=== PATIENT | female | born 2000 | race Caucasian/White ===

== ENCOUNTER 2020-10-20 01:21 | Emergency (ER) | payer OTHER ==
[~2020-10-20] VITALS: Ht 160 cm; Wt 81.6 kg
--- NOTE | 2020-10-20 02:02 | NUR ---
PATIENT CAME TO THE ER BED 14 C/O VAGINAL BLISTER AND PAIN SINCE LAST WEEK ON 10/11/20. PATIENT STATES THAT SHE IS SEXUALLY ACTIVE AND WITH ONLY ONE SEX PARTNER. PATIENT ALSO STATES THAT SHE TOOK ONE DOSE OF AMOXICILLIN ON THE AND STOPPED. PATIENT STATES THAT SHE HAD WHITE CLOUDY DISCHARGE LAST WEEK AND CURRENTLY HAS NONE. PATIENT IS ALERT. ORIENTED x4. DENIES SHORTNESS OF BREATH. CONNECTED TO THE MONITOR. CHANGED INTO A GOWN. MOTHER IS AT BEDSIDE.
[2020-10-20] MEDS ORDERED: HYDROCODONE/APAP 5/325MG TABLET PO ONE (02:30)
[2020-10-20] MEDS ORDERED: HYDROCODONE/APAP 5/325MG TABLET ONE (02:31)
--- NOTE | 2020-10-20 02:33 | NUR ---
US TECH AT BED SIDE
[2020-10-20 03:21] LABS: BILIRUBIN,URINE SMALL (NEGATIVE); COLOR,URINE YELLOW (YELLOW); LEUKOCYTE ESTERASE ,URINE Negative (NEGATIVE); NITRITE, URINE Negative (NEGATIVE); PROTEIN,URINE Negative (NEGATIVE); UGLUCOSE Negative (NEGATIVE); UROBILINOGEN,URINE 0.2 EU/dL (0.2)
[2020-10-20] MEDS ORDERED: LIDOCAINE /MPF 1% VIAL 5 ML VIAL ONE (03:29)
[2020-10-20] MEDS ORDERED: ONDANSETRON 4 MG TAB.RAPDIS ONE (03:29)
[2020-10-20] MEDS ORDERED: CEFTRIAXONE 500 MG VIAL ONE (03:29)
[2020-10-20] MEDS ORDERED: AZITHROMYCIN 250 MG TABLET ONE (03:29)
[2020-10-20] MEDS ORDERED: AZITHROMYCIN 250 MG TABLET PO ONE (03:30)
[2020-10-20] MEDS ORDERED: CEFTRIAXONE 1 G VIAL IM ONE (03:30)
[2020-10-20] MEDS ORDERED: ONDANSETRON 4 MG TAB.RAPDIS SL ONE (03:30)
[2020-10-20] MEDS ORDERED: HYDR-4209 PO (03:57)
[2020-10-20] MEDS ORDERED: ONDA4TAB5 PO (03:57)
[2020-10-20] MEDS ORDERED: DOXY100C2 PO (03:58)
--- NOTE | 2020-10-20 04:09 | NUR ---
Patient discharged to home in stable condition. Written and verbal after care instructions given. Patient verbalizes understanding of instruction.pt. ambulatory with a steady gait
[2020-10-20 05:33] VITALS: BP 111/77
== END 2020-10-20 04:09 | disposition home or self-care (01) ==
LOC: ER 01:25
DX: N76.5 Ulceration of vagina (principal); E03.9 Hypothyroidism, unspecified
CPT/HCPCS: 36415; 76856; 81003; 84703; 86592; 87210; 87491; 87591; 96372; 99284; J0696; J3490; Q0162